=== PATIENT | male | born 1950 | race Caucasian/White ===

== ENCOUNTER 2018-10-21 12:06 | Inpatient (IN) | payer MEDICARE ==
[~2018-10-21] VITALS: Ht 172.7 cm; Wt 133.5 kg
[2018-10-21 12:49] LABS: BASOPHILS % (AUTO) 1.1 % (0.0-2.0); EOSINOPHILS % (AUTO) 0.8 % (1.0-6.0); HEMATOCRIT 31.9 % (41-53); HEMOGLOBIN 9.3 g/dL (13.5-17.5); LYMPHOCYTES # (AUTO) 0.8 K/uL (1.0-4.8); LYMPHOCYTES % (AUTO) 6.2 % (22.0-44.0); MEAN CORPUSCULAR HEMOGLOBIN 20.6 pg (26.0-34.0); MEAN CORPUSCULAR HGB CONC 29.3 G/dL (31.0-37.0); MEAN CORPUSCULAR VOLUME 70 fL (80-100); MONOCYTES % (AUTO) 7.5 % (2.0-9.0); NEUTROPHILS # (AUTO) 10.8 K/uL (1.8-7.7); NEUTROPHILS % (AUTO) 84.4 % (40.0-70.0); PLATELET COUNT (AUTO) 555 K/uL (150-450); RED BLOOD CELL COUNT(AUTO) 4.54 MIL/uL (4.50-5.90); RED CELL DISTRIBUTION WIDTH 21.8 % (11.5-14.5)
[2018-10-21 13:00] LABS: ANION GAP 6 mmol/L (8-16); CALCIUM, TOTAL 9.6 mg/dL (8.8-10.5); CARBON DIOXIDE 31 mmol/L (22-29); CHLORIDE 94 mmol/L (98-107); CREATININE 1.88 mg/dL (0.60-1.30); GLOMERULAR FILTR. RATE CALC 36 mL/min (>60); GLUCOSE,RANDOM 124 mg/dL (70-110); POTASSIUM 4.4 mmol/L (3.5-5.1); SODIUM SERUM 131 mmol/L (136-145); UREA NITROGEN, BLOOD 54 mg/dL (7-18)
[2018-10-21 13:06] LABS: ALANINE AMINOTRANSFERASE 14 U/L (12-78); ALBUMIN 2.1 g/dL (3.4-5.0); ALKALINE PHOSPHATASE 190 U/L (46-116); ASPARTATE AMINOTRANSFERASE 23 U/L (15-37); BILIRUBIN,TOTAL 1.4 mg/dL (0.1-1.0); TOTAL PROTEIN, SERUM 7.8 g/dL (6.4-8.2)
[2018-10-21] MEDS ORDERED: ATOR10TA84 PO (13:10)
[2018-10-21] MEDS ORDERED: TIOT185 IH (13:10)
[2018-10-21] MEDS ORDERED: CARV25 PO (13:10)
[2018-10-21] MEDS ORDERED: WARF5 PO (13:10)
[2018-10-21] MEDS ORDERED: KDUR20 PO (13:10)
[2018-10-21] MEDS ORDERED: GABA-533 PO (13:10)
[2018-10-21] MEDS ORDERED: BUME1TAB34 PO (13:10)
[2018-10-21] MEDS ORDERED: PANT40TA25 PO (13:10)
[2018-10-21] MEDS ORDERED: POLY17PO PO (13:10)
[2018-10-21] MEDS ORDERED: ALLO100T PO (13:10)
[2018-10-21] MEDS ORDERED: BUDE10.2 IH (13:10)
[2018-10-21] MEDS ORDERED: HYDROCODONE/ACETAMINOPHEN 5-325 MG TABLET PO ONE (14:30)
[2018-10-21 15:19] LABS: AMPHET/METH SCREEN,URINE NEGATIVE (NEGATIVE); BARBITURATE SCREEN, URINE NEGATIVE (NEGATIVE); BENZODIAZEPINES SCREEN,URINE NEGATIVE (NEGATIVE); CANNABINOID SCREEN,URINE NEGATIVE (NEGATIVE); COCAINE SCREEN,URINE NEGATIVE (NEGATIVE); METHADONE SCREEN, URINE NEGATIVE (NEGATIVE); OPIATE SCREEN,URINE NEGATIVE (NEGATIVE); PHENCYCLIDINE SCREEN,URINE NEGATIVE (NEGATIVE)
[2018-10-21 15:21] LABS: CREATINE KINASE, TOTAL ONLY 61 U/L (39-308); URIC ACID 9.7 mg/dL (2.6-7.2)
[2018-10-21 15:28] LABS: APPEARANCE,URINE CLEAR (CLEAR); BILIRUBIN,URINE NEGATIVE (NEGATIVE); GLUCOSE, URINE (UA) NEGATIVE (NEGATIVE); KETONES,URINE NEGATIVE (NEGATIVE); LEUKOCYTE ESTERASE ,URINE NEGATIVE (NEGATIVE); NITRATE,URINE NEGATIVE (NEGATIVE); OCCULT BLOOD,URINE NEGATIVE (NEGATIVE); PROTEIN,URINE NEGATIVE (NEGATIVE)
[2018-10-21 15:43] LABS: C-REACTIVE PROTEIN QUANT 27.71 mg/dL (0.00-0.30)
[2018-10-21] MEDS ORDERED: ACETAMINOPHEN 325 MG TABLET PO PRN ×2 (16:45→22:15)
[2018-10-21] MEDS ORDERED: ONDANSETRON HCL 4 MG/2 ML VIAL IVP PRN ×2 (16:45→22:15)
[2018-10-21] MEDS ORDERED: 0.9% SODIUM CHLORIDE 10 ML SYRINGE IVP PRN ×2 (16:45→22:15)
[2018-10-21] MEDS ORDERED: MethylPREDNISolone SOD SUCC 125 MG/2 ML VIAL IVP ONE (16:45)
[2018-10-21 18:34] VITALS: BP 123/70
[2018-10-21] MEDS ORDERED: OxyCODONE HCL/ACETAMINOPHEN 5-325 MG TABLET PO PRN ×2 (22:15)
[2018-10-21] MEDS ORDERED: COLCHICINE 0.6 MG TABLET PO PRN (22:15)
[2018-10-21] MEDS ORDERED: MAGNESIUM HYDROXIDE SUSPENSION 30 ML UDCUP PO PRN (22:15)
[2018-10-21 22:29] LABS: INR 3.3 (0.9-1.1); PROTHROMBIN TIME 32.8 SEC (9.4-11.6)
[2018-10-21 23:09] VITALS: BP 127/76
[2018-10-21] MEDS: DOCUSATE SODIUM 100 MG CAPSULE PO SCH (23:12)
[2018-10-21] MEDS: CARVEDILOL 25 MG TABLET PO SCH (23:13)
[2018-10-21] MEDS: ATORVASTATIN CALCIUM 10 MG TABLET PO SCH (23:13)
[2018-10-21] MEDS: BUMETANIDE 1 MG TABLET PO SCH (23:13)
[2018-10-22 03:15] VITALS: BP 143/81
[2018-10-22 05:34] LABS: BASOPHILS % (AUTO) 0.1 % (0.0-2.0); EOSINOPHILS % (AUTO) 0 % (1.0-6.0); HEMATOCRIT 31.5 % (41-53); HEMOGLOBIN 9.3 g/dL (13.5-17.5); LYMPHOCYTES # (AUTO) 0.4 K/uL (1.0-4.8); LYMPHOCYTES % (AUTO) 4.8 % (22.0-44.0); MEAN CORPUSCULAR HEMOGLOBIN 21.1 pg (26.0-34.0); MEAN CORPUSCULAR HGB CONC 29.6 G/dL (31.0-37.0); MEAN CORPUSCULAR VOLUME 71 fL (80-100); MONOCYTES # (AUTO) 0.1 K/uL (0.1-1.0); NEUTROPHILS # (AUTO) 7.4 K/uL (1.8-7.7); PLATELET COUNT (AUTO) 527 K/uL (150-450); RED BLOOD CELL COUNT(AUTO) 4.43 MIL/uL (4.50-5.90); RED CELL DISTRIBUTION WIDTH 21.4 % (11.5-14.5)
[2018-10-22 05:42] LABS: CREATININE 1.99 mg/dL (0.60-1.30); POTASSIUM 4.1 mmol/L (3.5-5.1)
[2018-10-22 06:03] LABS: NEUTROPHILS % (AUTO) 94.1 % (40.0-70.0)
[2018-10-22 07:23] VITALS: BP 93/60
[2018-10-22] MEDS: CARVEDILOL 25 MG TABLET PO SCH (08:40)
[2018-10-22] MEDS: TIOTROPIUM BROMIDE 18 MCG/INH HANDIHALER [5] IH SCH (08:40)
[2018-10-22] MEDS: FAMOTIDINE 10 MG/ML 2 ML VIAL IVP SCH (08:45)
[2018-10-22] MEDS: GABAPENTIN 400 MG CAPSULE PO SCH ×3 (08:45→21:38)
[2018-10-22] MEDS: ALLOPURINOL 100 MG TABLET PO SCH (08:45)
[2018-10-22] MEDS: DOCUSATE SODIUM 100 MG CAPSULE PO SCH ×2 (08:56→21:38)
[2018-10-22] MEDS: BUMETANIDE 1 MG TABLET PO SCH (08:56)
[2018-10-22 08:57] VITALS: BP 104/53
[2018-10-22] MEDS ORDERED: POTASSIUM CHLORIDE 20 MEQ ER TABLET PO SCH (09:00)
[2018-10-22] MEDS ORDERED: DEXTROSE 50%-WATER 25 GM/50 ML SYRINGE IVP PRN (10:45)
[2018-10-22 11:31] VITALS: BP 92/53
[2018-10-22] MEDS ORDERED: *CLINICAL-WARFARIN SODIUM DOSING CLINICAL ONE (11:45)
[2018-10-22] MEDS: INSULIN LISPRO 100 UNITS/ML SQ PRN ×3 (12:06→21:40)
[2018-10-22 13:05] LABS: GLUCOMETER DEV NAME(LOC) 5N.2; GLUCOSE,POINT OF CARE 278 MG/DL (70-110)
[2018-10-22 13:05] LABS: GLUCOMETER DEV NAME(LOC) 5N.2; GLUCOSE,POINT OF CARE 155 MG/DL (70-110)
[2018-10-22 15:55] VITALS: BP 100/56
[2018-10-22] MEDS ORDERED: WARFARIN SODIUM 5 MG TABLET PO SCH (17:00)
[2018-10-22] MEDS ORDERED: WARFARIN SODIUM 5 MG TABLET PO ONE (17:00)
[2018-10-22] MEDS: WARFARIN SODIUM 2 MG TABLET PO ONE ×2 (17:08→17:17)
[2018-10-22 20:06] VITALS: BP 112/65
[2018-10-22] MEDS ORDERED: BUMETANIDE 1 MG TABLET PO SCH (21:00)
[2018-10-22] MEDS: SODIUM CHLORIDE 0.9% 1,000 ML IV SCH (21:38)
[2018-10-22] MEDS: CARVEDILOL 12.5 MG TABLET PO SCH (21:38)
[2018-10-22] MEDS: ATORVASTATIN CALCIUM 10 MG TABLET PO SCH (21:38)
[2018-10-22 22:35] LABS: GLUCOMETER DEV NAME(LOC) 5S.1; GLUCOSE,POINT OF CARE 201 MG/DL (70-110)
[2018-10-22 22:35] LABS: GLUCOMETER DEV NAME(LOC) 5N.2; GLUCOSE,POINT OF CARE 202 MG/DL (70-110)
[2018-10-23] VITALS (7 sets, daily range): BP systolic 96–126; BP diastolic 54–72
[2018-10-23 05:59] LABS: PROTHROMBIN TIME 46.2 SEC (9.4-11.6)
[2018-10-23 06:05] LABS: CALCIUM, TOTAL 9.5 mg/dL (8.8-10.5); CREATININE 1.53 mg/dL (0.60-1.30); PHOSPHORUS 3.4 mg/dL (2.5-4.9); POTASSIUM 3.8 mmol/L (3.5-5.1)
[2018-10-23 06:12] LABS: INR 4.7 (0.9-1.1)
[2018-10-23] MEDS ORDERED: WARFARIN SODIUM-INR 2.0-3.0-RX DOSING PER PROTOCOL PO PRN (08:30)
[2018-10-23] MEDS: GABAPENTIN 400 MG CAPSULE PO SCH ×3 (08:35→21:38)
[2018-10-23] MEDS: DULoxetine HCL 20 MG CAPSULE PO SCH (08:36)
[2018-10-23] MEDS: ALLOPURINOL 100 MG TABLET PO SCH (08:36)
[2018-10-23] MEDS: FAMOTIDINE 10 MG/ML 2 ML VIAL IVP SCH (08:37)
[2018-10-23] MEDS: TIOTROPIUM BROMIDE 18 MCG/INH HANDIHALER [5] IH SCH (08:37)
[2018-10-23] MEDS: CARVEDILOL 12.5 MG TABLET PO SCH ×2 (08:40→21:00)
[2018-10-23] MEDS: DOCUSATE SODIUM 100 MG CAPSULE PO SCH ×2 (08:44→21:38)
[2018-10-23] MEDS: SODIUM CHLORIDE 0.9% 1,000 ML IV SCH ×2 (12:52→23:38)
[2018-10-23 19:15] LABS: GLUCOMETER DEV NAME(LOC) 5N.1; GLUCOSE,POINT OF CARE 121 MG/DL (70-110)
[2018-10-23 19:15] LABS: GLUCOMETER DEV NAME(LOC) 5N.1; GLUCOSE,POINT OF CARE 120 MG/DL (70-110)
[2018-10-23 19:15] LABS: GLUCOMETER DEV NAME(LOC) 5N.1; GLUCOSE,POINT OF CARE 116 MG/DL (70-110)
[2018-10-23] MEDS: ATORVASTATIN CALCIUM 10 MG TABLET PO SCH (21:38)
[2018-10-23] MEDS: INSULIN LISPRO 100 UNITS/ML SQ PRN (21:42)
[2018-10-24 04:17] VITALS: BP 115/52
[2018-10-24 06:26] LABS: INR 3.3 (0.9-1.1); PROTHROMBIN TIME 33.5 SEC (9.4-11.6)
[2018-10-24 06:31] LABS: CALCIUM, TOTAL 9.2 mg/dL (8.8-10.5); CREATININE 1.28 mg/dL (0.60-1.30); MAGNESIUM 1.9 mg/dL (1.80-2.40); PHOSPHORUS 3.3 mg/dL (2.5-4.9); POTASSIUM 3.7 mmol/L (3.5-5.1)
[2018-10-24 08:22] VITALS: BP 113/63
[2018-10-24] MEDS: ALLOPURINOL 100 MG TABLET PO SCH (08:48)
[2018-10-24] MEDS: GABAPENTIN 400 MG CAPSULE PO SCH ×3 (08:48→20:20)
[2018-10-24] MEDS: CARVEDILOL 12.5 MG TABLET PO SCH ×2 (08:48→20:20)
[2018-10-24] MEDS: DULoxetine HCL 20 MG CAPSULE PO SCH (08:52)
[2018-10-24] MEDS: DOCUSATE SODIUM 100 MG CAPSULE PO SCH ×2 (08:52→20:21)
[2018-10-24] MEDS: FAMOTIDINE 10 MG/ML 2 ML VIAL IVP SCH (08:52)
[2018-10-24] MEDS: TIOTROPIUM BROMIDE 18 MCG/INH HANDIHALER [5] IH SCH (08:52)
[2018-10-24 11:45] VITALS: BP 114/64
[2018-10-24] MEDS: SODIUM CHLORIDE 0.9% 1,000 ML IV SCH (13:37)
[2018-10-24 15:58] VITALS: BP 115/69
[2018-10-24 19:28] VITALS: BP 127/73
[2018-10-24] MEDS: ATORVASTATIN CALCIUM 10 MG TABLET PO SCH (20:20)
[2018-10-24 22:05] LABS: GLUCOMETER DEV NAME(LOC) 5S.2A; GLUCOSE,POINT OF CARE 112 MG/DL (70-110)
[2018-10-24 22:06] LABS: GLUCOMETER DEV NAME(LOC) 5S.2A; GLUCOSE,POINT OF CARE 115 MG/DL (70-110)
[2018-10-24 22:06] LABS: GLUCOMETER DEV NAME(LOC) 5S.2A; GLUCOSE,POINT OF CARE 115 MG/DL (70-110)
[2018-10-24 23:40] VITALS: BP 133/78
[2018-10-25 04:21] VITALS: BP 131/69
[2018-10-25 06:31] LABS: ANION GAP 5 mmol/L (8-16); CALCIUM, TOTAL 9.3 mg/dL (8.8-10.5); CARBON DIOXIDE 31 mmol/L (22-29); CHLORIDE 101 mmol/L (98-107); CREATININE 1.05 mg/dL (0.60-1.30); GLOMERULAR FILTR. RATE CALC > 60 mL/min (>60); GLUCOSE,RANDOM 122 mg/dL (70-110); POTASSIUM 3.8 mmol/L (3.5-5.1); SODIUM SERUM 137 mmol/L (136-145); UREA NITROGEN, BLOOD 38 mg/dL (7-18)
[2018-10-25 06:35] LABS: INR 2.1 (0.9-1.1)
[2018-10-25 07:00] LABS: GLUCOMETER DEV NAME(LOC) 5N.2; GLUCOSE,POINT OF CARE 110 MG/DL (70-110)
[2018-10-25 07:17] VITALS: BP 130/82
[2018-10-25] MEDS: DOCUSATE SODIUM 100 MG CAPSULE PO SCH ×2 (09:00→20:36)
[2018-10-25] MEDS: TIOTROPIUM BROMIDE 18 MCG/INH HANDIHALER [5] IH SCH (09:18)
[2018-10-25] MEDS: GABAPENTIN 400 MG CAPSULE PO SCH ×3 (09:18→20:36)
[2018-10-25] MEDS: CARVEDILOL 12.5 MG TABLET PO SCH ×2 (09:18→20:36)
[2018-10-25] MEDS: DULoxetine HCL 20 MG CAPSULE PO SCH (09:18)
[2018-10-25] MEDS: FAMOTIDINE 10 MG/ML 2 ML VIAL IVP SCH (09:18)
[2018-10-25] MEDS: ALLOPURINOL 100 MG TABLET PO SCH (09:18)
[2018-10-25 11:08] VITALS: BP 114/73
[2018-10-25] MEDS ORDERED: DULO20CA30 PO (15:03)
[2018-10-25] MEDS ORDERED: WARF2.5 PO (15:06)
[2018-10-25 15:53] VITALS: BP 123/61
[2018-10-25] MEDS ORDERED: WARFARIN SODIUM 3 MG TABLET PO SCH (17:00)
[2018-10-25 17:11] LABS: GLUCOMETER DEV NAME(LOC) 5N.2; GLUCOSE,POINT OF CARE 144 MG/DL (70-110)
[2018-10-25 17:11] LABS: GLUCOMETER DEV NAME(LOC) 5S.2A; GLUCOSE,POINT OF CARE 105 MG/DL (70-110)
[2018-10-25 19:42] VITALS: BP 138/64
[2018-10-25 19:55] LABS: GLUCOMETER DEV NAME(LOC) 5S.1; GLUCOSE,POINT OF CARE 126 MG/DL (70-110)
[2018-10-25 19:55] LABS: GLUCOMETER DEV NAME(LOC) 5S.1; GLUCOSE,POINT OF CARE 110 MG/DL (70-110)
[2018-10-25] MEDS: INSULIN LISPRO 100 UNITS/ML SQ PRN (20:36)
[2018-10-25] MEDS: ATORVASTATIN CALCIUM 10 MG TABLET PO SCH (20:36)
[2018-10-26 00:03] VITALS: BP 131/74
[2018-10-26 03:00] LABS: GLUCOMETER DEV NAME(LOC) 5N.1; GLUCOSE,POINT OF CARE 143 MG/DL (70-110)
[2018-10-26 04:42] VITALS: BP 130/72
[2018-10-26] MEDS: FAMOTIDINE 10 MG/ML 2 ML VIAL IVP SCH (05:18)
[2018-10-26 06:19] LABS: INR 1.7 (0.9-1.1); PROTHROMBIN TIME 17.2 SEC (9.4-11.6)
[2018-10-26 07:45] VITALS: BP 125/72
[2018-10-26] MEDS: DULoxetine HCL 20 MG CAPSULE PO SCH (08:13)
[2018-10-26] MEDS: GABAPENTIN 400 MG CAPSULE PO SCH ×2 (08:13→16:14)
[2018-10-26] MEDS: TIOTROPIUM BROMIDE 18 MCG/INH HANDIHALER [5] IH SCH (08:13)
[2018-10-26] MEDS: ALLOPURINOL 100 MG TABLET PO SCH (08:13)
[2018-10-26] MEDS: CARVEDILOL 12.5 MG TABLET PO SCH (08:13)
[2018-10-26] MEDS: DOCUSATE SODIUM 100 MG CAPSULE PO SCH (08:13)
[2018-10-26 11:27] VITALS: BP 145/74
[2018-10-26 15:15] LABS: GLUCOMETER DEV NAME(LOC) 5N.2; GLUCOSE,POINT OF CARE 126 MG/DL (70-110)
[2018-10-26 15:39] VITALS: BP 130/63
[2018-10-26] MEDS ORDERED: WARFARIN SODIUM 2 MG TABLET PO ONE (17:00)
[2018-10-26 18:50] LABS: GLUCOMETER DEV NAME(LOC) 5S.1; GLUCOSE,POINT OF CARE 121 MG/DL (70-110)
== END 2018-10-26 16:35 | DRG 682 ==
LOC: EMS 12:09 → 5S 17:05
PROVIDERS: ADMIT Internal Medicine; ATTEND Internal Medicine
DX: N17.9 Acute kidney failure, unspecified (principal); E43 Unspecified severe protein-calorie malnutrition; F33.9 Major depressive disorder, recurrent, unspecified; R45.851 Suicidal ideations; E87.1 Hypo-osmolality and hyponatremia; I13.0 Hypertensive heart and chronic kidney disease with heart failure and stage 1 through stage 4 chronic kidney disease, or unspecified chronic kidney disease; D68.9 Coagulation defect, unspecified; Z68.41 Body mass index [BMI] 40.0-44.9, adult; M10.9 Gout, unspecified; N18.3 Chronic kidney disease, stage 3 (moderate); E11.22 Type 2 diabetes mellitus with diabetic chronic kidney disease; I50.9 Heart failure, unspecified; E66.01 Morbid (severe) obesity due to excess calories; I48.2 Chronic atrial fibrillation; D64.9 Anemia, unspecified; I48.91 Unspecified atrial fibrillation; Z79.01 Long term (current) use of anticoagulants; Z79.51 Long term (current) use of inhaled steroids; Z79.899 Other long term (current) drug therapy; Z82.49 Family history of ischemic heart disease and other diseases of the circulatory system; Z83.3 Family history of diabetes mellitus; Z86.73 Personal history of transient ischemic attack (TIA), and cerebral infarction without residual deficits; Z95.0 Presence of cardiac pacemaker; I95.9 Hypotension, unspecified
CPT/HCPCS: 76770; 83735; 84100; 84550; 86140; 93306; 96374; 97110; 97162; 97530; G0480; J2405; J2930; J3490; J7030